=== PATIENT | female | born 2000 | race African-American/Black ===

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

== ENCOUNTER 2022-01-02 15:55 | Emergency (ER) | payer BC, SELFPAY ==
[2022-01-02 16:17] VITALS: BP 109/69; PULSE 86; RESP 16; TEMP 36.3; O2SAT 100
== END 2022-01-02 17:56 | disposition left against medical advice (07) ==
DX: N92.0 Excessive and frequent menstruation with regular cycle (principal)
CPT/HCPCS: 99199

== ENCOUNTER 2022-07-01 22:56 | Emergency (ER) | payer BC, SELFPAY ==
--- NOTE | ~2022-07-01 | CT_ITS ---
EXAMINATION: CT abdomen pelvis w con DATE: 07/02/2022 00:55 INDICATION: Right flank pain. TECHNIQUE: Computed tomography (CT) of the abdomen and pelvis was performed with 100 mL Omnipaque 350 intravenous contrast. Automated exposure control and iterative reconstruction technique were employe d. The dose-length product was 182.25 mGy-cm. COMPARISON: None. FINDINGS: The visualized portions of the lung bases are clear without pneumonia or pleural effusion. The heart size is normal. No pericardial effusion. The liver, gallbladder, spleen, pancreas, adrenal glands, and kidneys are normal. There are no dilated loops of bowel. The appendix is normal. There ar e no pathologically enlarged lymph nodes. There is physiologic fluid in the pelvis. The bones are unr emarkable. IMPRESSION: 1. No etiology for the patient's symptoms. Reviewed, dictated and finalized at location A.
[2022-07-01 22:58] VITALS: BP 116/65; PULSE 93; RESP 16; TEMP 36.8; O2SAT 100
[2022-07-01 23:31] LABS: Add Urine Microscopic? YES; Appearance Urine Cloudy (Clear); Bilirubin Urine Negative (Negative); Blood Urine 2+ (Negative); Color Urine Yellow (Yellow); Glucose Urine UA Negative (Negative); Ketones Urine Negative (Negative); Leukocyte Esterase Ur 1+ LEU/UL (Negative); Nitrate Urine Positive (Negative); Protein Urine 2+ mg/dL (Negative); Urobilinogen Urine 0.2 mg/dL (<2.0)
[2022-07-01 23:34] LABS: Bacteria Urine Trace /hpf; Mucus Urine Few /lpf; RBC Urine >75 /hpf (0-2); Squamous Epithelial Cell Urine Moderate /hpf (Few); WBC Urine 51-75 /hpf
--- NOTE | 2022-07-02 00:09 | ED.BACK ---
HPI - Back Pain/Injury General Chief Complaint: Back Pain/Injury <KAYA Bustillos Last Filed: 07/02/22 01:56> Stated Complaint: BACK PAIN <KAYA Bustillos Last Filed: 07/02/22 01:56> Time Seen by Provider: 07/01/22 23:27 <KAYA Bustillos Last Filed: 07/02/22 01:56> Source: patient <KAYA Bustillos Last Filed: 07/02/22 01:56> Mode of arrival: ambulatory <KAYA Bustillos Last Filed: 07/02/22 01:56> Limitations: no limitations <KAYA Bustillos Last Filed: 07/02/22 01:56> History of Present Illness HPI Narrative: Patient is a 21-year-old female who presents the ED with report of right flank pain. Patient reports the pain began 2 days ago in her right flank. She also has had pain going across her back into the left flank. She denies any other symptoms. Denies fever, nausea, vomiting, abdominal pain, dysuria, hematuria, diarrhea, constipation, rectal bleeding, incontinence, vaginal bleeding, vaginal discharge. She has never had pain like this before. She has not tried anything for the pain. <KAYA Bustillos Last Filed: 07/02/22 01:56> Related Data Allergies/Adverse Reactions: Allergies Allergy/AdvReac Type Severity Reaction Status Date / Time amoxicillin Allergy Rash Verified 07/01/22 23:01 azithromycin [From Zithromax] Allergy Rash Verified 07/01/22 23:01 cephalexin Allergy Rash Verified 07/01/22 23:01 Penicillins Allergy Rash Verified 07/01/22 23:01 <KAYA Bustillos Last Filed: 07/02/22 01:56> Review of Systems Review of Systems: CONSTITUTIONAL: Denies fever, chills, or sweats. CARDIOVASCULAR: Denies chest pain. RESPIRATORY: Denies dyspnea. GASTROINTESTINAL: Denies abdominal pain, nausea, vomiting, constipation, incontinence, or diarrhea. GENITOURINARY: Denies vaginal bleeding, vaginal discharge, dysuria or hematuria. MUSCULOSKELETAL: Reports bilateral flank pain. <Dorcas Savage PA-C - Last Filed: 07/02/22 01:56> All systems reviewed & are unremarkable except as noted in HPI and below <Dorcas Savage PA-C - Last Filed: 07/02/22 01:56> PMFSH Past Medical History Medical History: Medical History (Updated 07/02/22 @ 01:43 by Dorcas Savage PA-C) Anemia Asthma Narcolepsy <Dorcas Savage PA-C - Last Filed: 07/02/22 01:56> Surgical History Surgical History: Surgical History (Updated 07/02/22 @ 00:11 by Dorcas Savage PA-C) History of knee surgery <Dorcas Savage PA-C - Last Filed: 07/02/22 01:56> Social History Social History: Social History (Updated 07/02/22 @ 00:11 by Dorcas Savage PA-C) Smoking status: Current every day smoker <Dorcas Savage PA-C - Last Filed: 07/02/22 01:56> Exam Narrative: GENERAL: Well appearing, well-nourished, non-toxic, in mild acute distress. HEAD: Normocephalic, atraumatic. NECK: Supple. No adenopathy, no masses. RESPIRATORY: Airway patent, respirations nonlabored. Clear to auscultation bilaterally, no rales, rhonchi, wheezing. CARDIOVASCULAR: Regular rate and rhythm without murmurs, rubs, or gallops. Peripheral pulses 2+ and equal bilaterally. ABDOMINAL: Soft, no appreciable tenderness to palpation. Nondistended, no hepatosplenomegaly. Normoactive BS. MUSCULOSKELETAL: Moves all extremities. Strength/ROM intact without gross deformities. Mild tenderness to palpation in right flank/lumbar region. No significant CVA tenderness. SKIN: Warm, dry, normal color. No rashes. NEURO: A&O X3. Speech clear. Cranial nerves II-XII grossly intact. Steady gait. No ataxic movements. PSYCHIATRIC: Tearful, anxious. Normal interaction. <JUAN RAMON BustillosC - Last Filed: 07/02/22 01:56> Course SAFE DEPOSIT CLERK/PA Physician Supervision For this patient encounter, I reviewed the SAFE DEPOSIT CLERK or PA documentation, treatment plan, and medical decision making <Vinod Hoyt MD - Last
[2022-07-02 00:15] VITALS: BP 116/68; PULSE 90; RESP 16; TEMP 36.8; O2SAT 100
[2022-07-02 00:19] LABS: Basophils Absolute Auto 0.1 K/mm3 (0.0-0.1); Basophils Percent Auto 0.8 % (0.2-1.2); Eosinophils Absolute Auto 0.3 K/mm3 (0-0.3); Eosinophils Percent Auto 2.6 % (0-4.4); Hematocrit 34.3 % (37.0-47.0); Hemoglobin 11.7 g/dL (12.0-15.0); Immature Granulocyte Absolute 0.03 K/mm3 (0.00-0.031); Immature Granulocyte Percent A 0.3 % (0-0.5); Lymphocytes Absolute Auto 2.48 K/mm3 (0.9-3.2); Lymphocytes Percent Auto 22.9 % (18.3-44.2); Mean Corpuscular HGB Conc 34.1 g/dl (32-36); Mean Corpuscular Hemoglobin 26.5 pg (26-34); Mean Corpuscular Volume 77.8 fl (80-100); Mean Platelet Volume 9.3 fl (7.4-10.4); Monocytes Absolute Auto 0.5 K/mm3 (0.1-0.6); Monocytes Percent Auto 4.9 % (2.6-8.5); Neutrophils Absolute Auto 7.4 K/mm3 (1.3-6.7); Neutrophils Percent Auto 68.5 % (45.5-73.1); Platelet Count Result 433 k/mm3 (150-375); Red Blood Count 4.41 M/mm3 (4.2-5.4); Red Cell Distribution Width 17.8 % (11.5-14.5); White Blood Count 10.9 K/mm3 (4.5-10.0)
[2022-07-02] MEDS: SODIUM CHLORIDE 0.9% IV 1,000 ML 999 ML IV CONT (00:21)
[2022-07-02 00:30] LABS: Alanine Aminotransferase 14 U/L (6-35); Alkaline Phosphatase 53 U/L (45-116); Anion Gap 15 mmol/L (8-16); Aspartate Amino Transferase 61 U/L (14-36); Bilirubin,Total 0.4 mg/dL (0.2-1.3); Blood Urea Nitrogen 9 mg/dL (8-21); Calcium 9.6 mg/dL (8.9-10.7); Carbon Dioxide 27 mmol/L (22-30); Chloride 100 mmol/L (98-107); Estimated CRCL calculation 92 ml/min; Estimated Glomerular Filt Rate > 60; Glucose 91 mg/dL (65-110); Potassium 3.8 mmol/L (3.4-5.0); Sodium 142 mmol/L (134-143)
[2022-07-02 01:02] VITALS: BP 124/76; PULSE 72; RESP 16; O2SAT 100
[2022-07-02] MEDS: SULFAMETHOXAZOLE/TRIMETHOPRIM 800/160 MG DS TABLET 1 TAB PO (01:39)
[2022-07-02 01:54] VITALS: RESP 16; O2SAT 100
== END 2022-07-02 01:55 | disposition home or self-care (01) ==
PROVIDERS: Physician Assistant; Emergency Provider Emergency Medicine
DX: N30.01 Acute cystitis with hematuria (principal); J45.909 Unspecified asthma, uncomplicated; F17.200 Nicotine dependence, unspecified, uncomplicated
CPT/HCPCS: 36415; 74177; 80053; 81001; 81025; 85025; 87077; 87086; 87088; 96365; 99284; A9270; J0131; J7030; Q9967

== ENCOUNTER 2023-06-10 21:18 | Emergency (ER) | payer BC, SELFPAY ==
[2023-06-10 21:49] VITALS: BP 112/76; PULSE 71; RESP 16; TEMP 36.6; O2SAT 100
[2023-06-10 23:27] VITALS: BP 114/71; PULSE 65; RESP 14; TEMP 36.9; O2SAT 100
[2023-06-10 23:30] VITALS: BP 115/77; PULSE 65; RESP 15; O2SAT 100
[2023-06-11 01:30] VITALS: BP 112/83; PULSE 66; RESP 14; O2SAT 100
--- NOTE | 2023-06-11 01:31 | ED.FEMALEGU ---
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 She denies any known exposure but has been having some increased white vaginal discharge. She is sexually active. Denies vaginal pain. States she wants to be tested to be on the safe side. Denies any fevers, abdominal pain, nausea, vomiting, problems with urination or bowel movements. Related Data Allergies Allergy/AdvReac Type Severity Reaction Status Date / Time amoxicillin Allergy Rash Verified 06/10/23 21:56 azithromycin [From Zithromax] Allergy Rash Verified 06/10/23 21:56 cephalexin Allergy Rash Verified 06/10/23 21:56 Penicillins Allergy Rash Verified 06/10/23 21:56 Review of Systems Review of Systems: All systems as dictated in [facility] Past Medical History Medical History (Updated 06/11/23 @ 03:46 by Martin Blue PA-C) Anemia Asthma Narcolepsy Surgical History Surgical History (Updated 07/02/22 @ 00:11 by Dorcas Savage PA-C) History of knee surgery Social History Social History (Updated 07/02/22 @ 00:11 by Dorcas Savage PA-C) Smoking status: Current every day smoker Exam Narrative: GENERAL: Well-appearing, well-nourished, and in no acute distress. HEAD: Normocephalic, atraumatic. EYES: PERRLA and EOMI. ENT: Nares clear, no rhinorrhea or epistaxis. Mucous membranes moist. Oropharynx without tonsillar hypertrophy exudate or other lesions. NECK: Supple. No adenopathy or masses. CHEST: No respiratory distress. Clear to auscultation. No wheezes rales or rhonchi HEART: Regular rate and rhythm. No murmur heard. Normal peripheral pulses. ABDOMEN: Soft, nontender, nondistended, normal active bowel sounds. MSK: Normal range of motion. No edema. SKIN: Warm, dry, no rash. NEURO: Alert and oriented x3. No focal deficits. PSYCH: Normal mood and affect. : Pelvic exam done with female tech manager performance present: There is white discharge throughout the vaginal vault. No evidence of any cottage cheeselike discharge. No other lesions present. Course Course Emergency Course: 0 200: Updated by the lab that the swab for trichomonas was incorrect and we will have to resend. The pelvic exam will have to be repeated. Vital Signs Vital signs: Vital Signs Temperature 97.9 F 06/10/23 21:49 Pulse Rate 71 06/10/23 21:49 Respiratory Rate 16 06/10/23 21:49 Blood Pressure 112/76 06/10/23 21:49 Pulse Oximetry 100 06/10/23 21:49 Oxygen Delivery Room Air 06/10/23 21:49 Temperature 98.5 F 06/10/23 23:27 Pulse Rate 70 06/11/23 03:15 Respiratory Rate 14 06/11/23 03:15 Blood Pressure 114/82 06/11/23 03:15 Pulse Oximetry 99 06/11/23 03:15 Oxygen Delivery Room Air 06/10/23 21:49 MDM - Female Genitourinary MDM Narrative Medical decision making narrative: This is a 22-year-old female who presents to the ED for chief concern of possible STDs. She has increased vaginal discharge. Vitals are normal. Physical exam is benign. Pelvic exam reveals white discharge throughout the vaginal vault and no other lesions. Swabs are negative. diflucan given here for potential candidal infection. Pt will be discharged in stable condition. Return precautions given and supportive measures discussed. Pt is understanding and agreeable with plan for discharge and follow-up with PCP. Lab Data Labs: Lab Results 06/11/23 Range/Units 02:34 C. trachomatis (PCR) Pending N. gonorrhoeae (PCR) Pending T. vaginalis (PCR) Pending Discharge Plan Discharge Clinical Impression: Screening examination for STD (sexually transmitted disease) Patient Disposition: Home, Self-Care Condition: Stable
[2023-06-11 03:15] VITALS: BP 114/82; PULSE 70; RESP 14; O2SAT 99
[2023-06-11 03:43] LABS: Trichomonas Vag PCR NOT DETECTED (NOT DETECTE)
[2023-06-11] MEDS: FLUCONAZOLE 150 MG TABLET PO (04:08)
[2023-06-11 04:09] LABS: Chlamydia trachomatis NOT DETECTED (NOT DETECTE); Neisseria gonorrhoeae PCR NOT DETECTED (NOT DETECTE)
[2023-06-11 05:04] VITALS: BP 116/81; PULSE 60; RESP 15; O2SAT 99
[2023-06-11 05:46] VITALS: BP 116/81; PULSE 98; RESP 14; TEMP 37.1; O2SAT 99
== END 2023-06-11 05:48 | disposition home or self-care (01) ==
PROVIDERS: Emergency Provider Physician Assistant
DX: N89.8 Other specified noninflammatory disorders of vagina (principal); J45.909 Unspecified asthma, uncomplicated; G47.419 Narcolepsy without cataplexy; F17.200 Nicotine dependence, unspecified, uncomplicated; Z86.2 Personal history of diseases of the blood and blood-forming organs and certain disorders involving the immune mechanism
CPT/HCPCS: 87491; 87591; 87661; 99284; A9270